=== PATIENT | female | born 1970 | race Two or more races ===

== ENCOUNTER 2024-05-28 17:42 | Emergency (ER) | payer MEDICAID, OTHER ==
[~2024-05-28] VITALS: Ht 157.5 cm; Wt 109.5 kg
--- NOTE | 2024-05-28 19:19 | DVH ---
Procedure: CT CT AB PEL WO CON-NO ORAL OR IV 05/28/2024 06:56 PM Indication: abd pain Comparison Study: None available at time of dictation. Technique: Axial images were obtained and reformatted in coronal and sagittal planes. All CT scans at this medical facility are performed using dose modulation techniques as appropriate t o a performed exam including the following: Automated exposure control was utilized; adjustment of th e MA and/or KV according to patient size; and use of iterative reconstruction technique. CT Dose: CTDI volume is 26.4 mGy. Dose-length product is 1425.45 mGy*cm FINDINGS: Lower Chest: Unremarkable. Hepatobiliary: Unremarkable. Spleen: Unremarkable. Pancreas: Unremarkable. Adrenal Glands: Unremarkable. tract: The kidneys are normal in size bilaterally without hydronephrosis or nephrolithiasis. The urinary bladder is unremarkable. GI tract: The stomach is grossly normal in appearance. No evidence of small bowel obstruction. The la rge bowel is unremarkable. The appendix is not visualized. No inflammatory change is noted in the ri ght lower quadrant. Lymphatics: No mesenteric, retroperitoneal or periportal lymphadenopathy. Vasculature: The abdominal aorta is normal in in caliber. Pelvic Organs: Anteverted uterus. A large, 18 x 16 x 13.4 cm septated cystic mass is seen extending f rom right side of the pelvis to the right upper quadrant displaying bowel to the track vehicle repairer of the ab domen. Small amount of free fluid is seen between the uterine fundus and the cystic lesion. Multiple left ovarian cysts versus a septated cyst with cumulative measurement of 10 x 6 cm. Bones/soft tissues: No acute abnormality. Other: None. IMPRESSION: 1. Large, 18 x 16 cm septated cystic mass occupying right side of the pelvis and right hemiabdomen pr obably an adnexal cyst. Cystic ovarian neoplasm can not be ruled out. Correlation with ultrasound is recommended. 2. Multilocular left ovarian cyst measuring 10 x 6 cm.
[2024-05-28 19:33] LABS: Basophils # (auto) 0.1 10 ^3/uL (0-0.2); Basophils % (auto) 0.8 % (0.0-2.0); Eosinophils # (auto) 0.1 10 ^3/uL (0-0.8); Eosinophils % (auto) 1.7 % (0.0-7.0); Hematocrit 42.2 % (36.0-46.0); Hemoglobin 13.9 g/dL (12.2-16.2); Lymphocytes # (auto) 2.2 10 ^3/uL (0.4-5.4); Lymphocytes % (auto) 33.5 % (10.0-50.0); Mean Corpuscular Hemoglobin 28.4 pg (28.0-32.0); Mean Corpuscular Hgb Conc. 32.9 g/dL (32.0-36.0); Mean Corpuscular Volume 86.4 fL (80.0-100.0); Monocytes # (auto) 0.3 10 ^3/uL (0-1.3); Monocytes % (auto) 4.8 % (0.0-12.0); Neutrophils # (auto) 3.9 10 ^3/uL (1.6-8.6); Neutrophils % (auto) 59.2 % (37.0-80.0); Nucleated Red Blood Cells % 0.1 %; Platelet Count (auto) 304 10^3/uL (140-450); Red Blood Cells 4.88 10^6/uL (4.0-5.20); Red Cell Distribution Width 13.8 % (11.8-14.3); White Blood Cell 6.5 10^3/uL (4.4-10.8)
[2024-05-28 19:38] LABS: Alanine Aminotransferase 18 U/L (7-40); Albumin 4.5 g/dL (3.2-4.8); Anion Gap 8 (5-15); BUN/Creatinine Ratio 19.5 (10.0-20.0); Blood Urea Nitrogen 16 mg/dL (9-23); Calcium 10.2 mg/dL (8.7-10.4); Carbon Dioxide 28 mmol/L (20-31); Chloride 106 mmol/L (98-107); Potassium 4.1 mmol/L (3.5-5.1); Sodium 142 mmol/L (136-145); Total Protein 6.8 g/dL (5.7-8.2)
[2024-05-28 19:52] LABS: Alkaline Phosphatase 119 U/L (46-116); Aspartate Aminotransferase 13 U/L (13-40); Bilirubin, Total 0.2 mg/dL (0.2-1.0); Glucose 124 mg/dL (74-106)
[2024-05-28 20:07] LABS: Lipase 38 U/L (12-53)
--- NOTE | 2024-05-28 20:12 | ED.PDOC ---
GI ASSESSMENT HPI Comments 54y F who presents to the ED for chief complaint of abdominal pain. Pt had the following course of events in the ED; -pt has been having RLQ abdominal pain since 04/11/24 getting progressively worse. -pt states the pain is intermittent, but states the pain today became unbearable so pt came to the ED for evaluation -pt in the ED, states the pain is achy, non-radiating, with no associated exacerbating or relieving factors - pt states she has bleeding when wiping while using the restroom a few month back - pt saw OB recently and had normal pap smear done PMH: hypertension PSH: c-sections, L breast cyst removed medications: unknown social history: denies tobacco use, denies ETOH use, denies drug use allergies: denies STANLEY HPI: Poor Historian. 54-year-old female presents to emergency department for evaluation of right lower quadrant abdominal pain that is intermittent initial nonradiating. No alleviating or precipitating factors. This onset of pain was on April 24 of last year. Pain has been getting worse. Patient has an OB Gyne doctor. Patient most recent Pap smear was proximally a year ago that was normal. Denies any other acute symptoms. Denies any vaginal bleeding. Past Medcial History: Hypertension Past Surgical History: REVIEW OF SYSTEMS: CONSTITUTIONAL: Denies acute: fever, diaphoresis, chills, generalized weakness. HEAD: Denies acute: headache, photophobia Eyes: Denies acute: Double vision, vision loss, eye pain, eye discharge. EARS: Denies acute: tinnitus, hearing loss, ear discharge, ear pain, THROAT: Denies acute: sore throat, swelling, difficulty swallowing , pain with swallowing, change in voice. NECK: Denies acute: neck pain, neck swelling, stiff neck. HEART: Denies acute : chest pain, palpitations, LUNGS: Denies acute: SOB, wheezing, cough, hemoptysis ABDOMEN: Denies acute: Nausea, Vomiting, diarrhea, melena , hematemesis, hematochezia SKIN: Denies acute: rash, redness, lesions, itchiness. EXTREMITIES: Denies acute: calf pain, numbness, tingling, weakness, denies pain in extremity. Denies acute: Low back pain. Neuro: Denies acute: focal neurological deficit, motor or sensory focal neurological deficit, tremors, seizure like activity, confusion, dizziness, change in mental status, loss of bowel or bladder function, cauda equina like symptoms. : Denies acute: dysuria, hematuria, flank pain, increase in urinary frequency. PSYCH: Denies acute: hallucination, suicidal ideation, homicidal ideation. FEMALE: Denies acute: abnormal vaginal bleeding, foul odor, unusual discharge. PHYSICAL EXAM: General: no acute distress, awake and alert. Head: normocephalic, atraumatic. Neck: supple, trachea is midline, no swelling. Throat: Normal phonation. Eyes:, no erythema, no purulent discharge, no proptosis, no icterus. Heart: regular rate, regular rhythm, no significant murmur appreciated. Lungs: no apparent respiratory distress, Able to speak in full sentences. No wheezing, no rhonchi, no crackles. No stridors Clear to auscultation bilaterally. Abdomen: Right lower quadrant tender to palpation, non distended, soft, no guarding, no rebound, + bowel sounds. Obese Neuro: Awake, Alert, oriented to name, self, situation, follows commands GCS=15. Speech is normal. Skin: no petechia, no purpura, no cyanosis, non-pale, not jaundice. Lower extremities: --no - Pitting edema no deformity, no focal swelling, no calf TTP. Makes eye contact. moves all four extremities. Face: no apparent facial droop. Ambulating in the ED independently. Chief Complaint: Abdominal Pain Time Seen by MD: 18:11 Reviewed Notes: Medications, Allergies Information Source: Patient Mode of Arrival: Ambulatory Brought in by: self Past Medical History PAST MEDICAL HISTORY: HTN Was a procedure done? Was a procedure done?: No GI differential Dx Differential Diagnosis: Appendicitis, Cholecystitis, Diverticular disease, Gastritis/PUD, Gastroenteritis, GI hemorrhage, Pancreatitis, Food Poisoning, Kidney Stone, Other X-Ray, Labs, Meds, VS Vital Signs Date Time Temp Pulse Resp B/P (MAP) Pulse Ox O2 Delivery O2 Flow Rate FiO2 05/28/24 18:11 99.2 96 14 166/78 (107) 99 Lab Test 05/28/24 19:37 05/28/24 18:43 Range/Units Troponin I High Sensitivity 18 18 </=34 ng/L White Blood Count 6.5 4.4-10.8 10^3/uL Red Blood Count 4.88 4.0-5.20 10^6/uL Hemoglobin 13.9 12.2-16.2 g/dL Hematocrit 42.2 36.0-46.0 % Mean Corpuscular Volume 86.4 80.0-100.0 fL Mean Corpuscular Hemoglobin 28.4 28.0-32.0 pg Mean Corpuscular Hemoglobin Concent 32.9 32.0-36.0 g/dL Red Cell Distribution Width 13.8 11.8-14.3 % Platelet Count 304 140-450 10^3/uL Mean Platelet Volume 9.7 6.9-10.8 fL Neutrophils (%) (Auto) 59.2 37.0-80.0 % Lymphocytes (%) (Auto) 33.5 10.0-50.0 % Monocytes (%) (Auto) 4.8 0.0-12.0 % Eosinophils (%) (Auto) 1.7 0.0-7.0 % Basophils (%) (Auto) 0.8 0.0-2.0 % Neutrophils # (Auto) 3.9 1.6-8.6 10 ^3/uL Lymphocytes # (Auto) 2.2 0.4-5.4 10 ^3/uL Monocytes # (Auto) 0.3 0-1.3 10 ^3/uL Eosinophils # (Auto) 0.1 0-0.8 10 ^3/uL Basophils # (Auto) 0.1 0-0.2 10 ^3/uL Nucleated Red Blood Cells 0.1 % Sodium Level 142 136-145 mmol/L Potassium Level 4.1 3.5-5.1 mmol/L Chloride Level 106 98-107 mmol/L Carbon Dioxide Level 28 20-31 mmol/L Anion Gap 8 5-15 Blood Urea Nitrogen 16 9-23 mg/dL Creatinine 0.82 0.550-1.02 mg/dL Glomerular Filtration Rate Calc 86 >90 mL/min BUN/Creatinine Ratio 19.5 10.0-20.0 Serum Glucose 124 H 74-106 mg/dL Lactic Acid Level 1.4 0.4-2.0 mmol/L Calcium Level 10.2 8.7-10.4 mg/dL Total Bilirubin 0.2 0.2-1.0 mg/dL Aspartate Amino Transferase (AST) 13 13-40 U/L Alanine Aminotransferase (ALT) 18 7-40 U/L Alkaline Phosphatase 119 H 46-116 U/L Total Protein 6.8 5.7-8.2 g/dL Albumin 4.5 3.2-4.8 g/dL Lipase 38 12-53 U/L [address] [address] Ph: [phone] DIAGNOSTIC IMAGING Diagnostic Imaging Report : [id number] Signed PATIENT: NIMO STANLEY ACCT: [id number] UNIT: [id number] : 1970 LOC: ER ROOM / BED: / AGE / SEX: 54 / F ADM STATUS: REG ER SERVICE 183 ORDERING PHYSICIAN: YOLANDA KRAUSE DO PROCEDURE(s): ABPL - CT AB PEL WO CON-NO ORAL OR IV REASON: abd pain ORDER NUMBER(s): [id number], ACCESSION NUMBER(s): [id number] Procedure: CT CT AB PEL WO CON-NO ORAL OR IV 05/28/2024 06:56 PM Indication: abd pain Comparison Study: None available at time of dictation. Technique: Axial images were obtained and reformatted in coronal and sagittal planes. All CT scans at this medical facility are performed using dose modulation techniques as appropriate to a performed exam including the following: Automated exposure control was utilized; adjustment of the MA and/or KV according to patient size; and use of iterative reconstruction technique. CT Dose: CTDI volume is 26.4 mGy. Dose-length product is 1425.45 mGy*cm FINDINGS: Lower Chest: Unremarkable. Hepatobiliary: Unremarkable. Spleen: Unremarkable. Pancreas: Unremarkable. Adrenal Glands: Unremarkable. tract: The kidneys are normal in size bilaterally without hydronephrosis or nephrolithiasis. The urinary bladder is unremarkable. GI tract: The stomach is grossly normal in appearance. No evidence of small bowel obstruction. The large bowel is unremarkable. The appendix is not visualized. No inflammatory change is noted in the right lower quadrant. Lymphatics: No mesenteric, retroperitoneal or periportal lymphadenopathy. Vasculature: The abdominal aorta is normal in in caliber. Pelvic Organs: Anteverted uterus. A large, 18 x 16 x 13.4 cm septated cystic mass is seen extending from right side of the pelvis to the right upper quadrant displaying bowel to the pulverizer of the abdomen. Small amount of free fluid is seen between the uterine fundus and the cystic lesion. Multiple left ovarian cysts versus a septated cyst with cumulative measurement of 10 x 6 cm. Bones/soft tissues: No acute abnormality. Other: None. IMPRESSION: 1. Large, 18 x 16 cm septated cystic mass occupying right side of the pelvis and right hemiabdomen probably an adnexal cyst. Cystic ovarian neoplasm can not be ruled out. Correlation with ultrasound is recommended. 2. Multilocular left ovarian cyst measuring 10 x 6 cm. ATED BY: MARIAN PEACOCK MD DICTATED DATE/TIME: 05/28/241915 SIGNED BY: MARIAN PEACOCK MD SIGNED DATE/TIME: 05/28/241915 CC: Patient Education/Counseling: Diagnosis, Treatment Family Education/Counseling: No Family Present I personally scribed for MARGARITA HAND MD ([email or web address]) on 05/28/24 at 20:12. Electronically submitted by Oseas Scott ([email or web address]). I personally scribed for MARGARITA HAND MD ([email or web address]) on 05/28/24 at 20:56. Electronically submitted by Oseas Scott ([email or web address]). MARGARITA HAND MD May 28, 2024 20:12 YOLANDA KRAUSE DO May 28, 2024 20:13
--- NOTE | 2024-05-28 20:52 | DVH ---
EXAM: US PELVIC CLINICAL HISTORY: pelvic mass TECHNIQUE: Transabdominal ultrasound of the pelvis with color Doppler flow as clinically indicated. COMPARISON: None Findings: Same-day quantitative beta-hCG is not available. Uterus measures 10.7 x 7.5 x 6.1 cm in size with relatively heterogeneous echotexture and normal cont ours. Multiple hypoechoic lesion near the uterine fundus, measuring up to 4.3 x 3.2 x 3.4 cm. Endometrium not well visualized. Cervix appears grossly unremarkable. Bilateral ovaries not visualized. 16.1 x 12.5 x 17.8 cm right adnexal anechoic mass. 8.8 x 8.0 x 7.0 cm hypoechoic left adnexal mass with internal septations. Mild free fluid in the cul-de-sac. Impression: 1. Myomatous uterus. Endometrium not well visualized. 2. Bilateral ovaries not visualized. 3. Large right adnexal cystic lesion and large left complex adnexal mass. Recommend contrast enhanced MRI for further evaluation. 4. Mild free fluid in the cul-de-sac, nonspecific.
--- NOTE | 2024-05-28 20:59 | ED.PDOC ---
GI ASSESSMENT HPI Comments PMH: hypertension PSH: c-sections, L breast cyst removed medications: unknown social history: denies tobacco use, denies ETOH use, denies drug use allergies: denies HPI: Poor Historian. 54-year-old female presents to emergency department for evaluation of right lower quadrant abdominal pain that is intermittent initial nonradiating. No alleviating or precipitating factors. This onset of pain was on April 24 of last year. Pain has been getting worse. Patient has an OB Gyne doctor. Patient most recent Pap smear was proximally a year ago that was normal. Denies any other acute symptoms. Denies any vaginal bleeding. Past Medcial History: Hypertension Past Surgical History: REVIEW OF SYSTEMS: CONSTITUTIONAL: Denies acute: fever, diaphoresis, chills, generalized weakness. HEAD: Denies acute: headache, photophobia Eyes: Denies acute: Double vision, vision loss, eye pain, eye discharge. EARS: Denies acute: tinnitus, hearing loss, ear discharge, ear pain, THROAT: Denies acute: sore throat, swelling, difficulty swallowing , pain with swallow ing, change in voice. NECK: Denies acute: neck pain, neck swelling, stiff neck. HEART: Denies acute : chest pain, palpitations, LUNGS: Denies acute: SOB, wheezing, cough, hemoptysis ABDOMEN: Denies acute: Nausea, Vomiting, diarrhea, melena , hematemesis, hematochezia SKIN: Denies acute: rash, redness, lesions, itchiness. EXTREMITIES: Denies acute: calf pain, numbness, tingling, weakness, denies pain in extremity. Denies acute: Low back pain. Neuro: Denies acute: focal neurological deficit, motor or sensory focal neurological deficit, tremors, seizure like activity, confusion, dizziness, change in mental status, loss of bowel or bladder function, cauda equina like symptoms. : Denies acute: dysuria, hematuria, flank pain, increase in urinary frequency. PSYCH: Denies acute: hallucination, suicidal ideation, homicidal ideation. FEMALE: Denies acute: abnormal vaginal bleeding, foul odor, unusual discharge. PHYSICAL EXAM: General: no acute distress, awake and alert. Head: normocephalic, atraumatic. Neck: supple, trachea is midline, no swelling. Throat: Normal phonation. Eyes:, no erythema, no purulent discharge, no proptosis, no icterus. Heart: regular rate, regular rhythm, no significant murmur appreciated. Lungs: no apparent respiratory distress, Able to speak in full sentences. No wheezing, no rhonchi, no crackles. No stridors Clear to auscultation bilaterally. Abdomen: Right lower quadrant tender to palpation, non distended, soft, no guarding, no rebound, + bowel sounds. Obese Neuro: Awake, Alert, oriented to name, self, situation, follows commands GCS=15. Speech is normal. Skin: no petechia, no purpura, no cyanosis, non-pale, not jaundice. Lower extremities: --no - Pitting edema no deformity, no focal swelling, no calf TTP. Makes eye contact. moves all four extremities. Face: no apparent facial droop. Ambulating in the ED independently. Chief Complaint: Abdominal Pain Time Seen by MD: 19:18 Reviewed Notes: Medications, Allergies Allergies: Coded Allergies: No Known Drug Allergy (Verified Allergy, Unknown, 05/28/24) Information Source: Patient Mode of Arrival: Ambulatory Past Medical History PAST MEDICAL HISTORY: HTN Was a procedure done? Was a procedure done?: No GI differential Dx Differential Diagnosis: Appendicitis, Cholecystitis, Diverticular disease, Gastritis/PUD, Gastroenteritis, GI hemorrhage, Pancreatitis, Food Poisoning, Kidney Stone, Other Other Differential Diagnosis Appendicitis, Cholecystitis, Diverticular disease, Gastritis/PUD, Gastroenteritis, GI hemorrhage, Pancreatitis, Food Poisoning, Kidney Stone, Other X-Ray, Labs, Meds, VS Vital Signs Date Time Temp Pulse Resp B/P (MAP) Pulse Ox O2 Delivery O2 Flow Rate FiO2 05/28/24 23:43 97.8 81 16 138/76 (96) 95 97.8 05/28/24 18:11 99.2 96 14 166/78 (107) 99 Lab Test 05/28/24 21:49 05/28/24 19:37 05/28/24 18:43 Range/Units Urine Color Light-yellow Yellow Urine Clarity Clear Clear Urine pH 6.0 5.0-9.0 Urine Specific [place] 1.022 1.001-1.035 Urine Protein Negative Negative Urine Ketones Negative Negative Urine Blood Negative Negative /uL Urine Nitrite Negative Negative Urine Bilirubin Negative Negative Urine Urobilinogen Normal Negative mg/dL Urine Leukocyte Esterase Negative Negative /uL Urine RBC <1 0 - 4 /hpf Urine Microscopic WBC < 1 0-5 /HPF Urine Squamous Epithelial Cells Few <5 /hpf Urine Bacteria Few H None Seen /hpf Urine Glucose Normal Normal mg/dL Troponin I High Sensitivity 18 18 </=34 ng/L White Blood Count 6.5 4.4-10.8 10^3/uL Red Blood Count 4.88 4.0-5.20 10^6/uL Hemoglobin 13.9 12.2-16.2 g/dL Hematocrit 42.2 36.0-46.0 % Mean Corpuscular Volume 86.4 80.0-100.0 fL Mean Corpuscular Hemoglobin 28.4 28.0-32.0 pg Mean Corpuscular Hemoglobin Concent 32.9 32.0-36.0 g/dL Red Cell Distribution Width 13.8 11.8-14.3 % Platelet Count 304 140-450 10^3/uL Mean Platelet Volume 9.7 6.9-10.8 fL Neutrophils (%) (Auto) 59.2 37.0-80.0 % Lymphocytes (%) (Auto) 33.5 10.0-50.0 % Monocytes (%) (Auto) 4.8 0.0-12.0 % Eosinophils (%) (Auto) 1.7 0.0-7.0 % Basophils (%) (Auto) 0.8 0.0-2.0 % Neutrophils # (Auto) 3.9 1.6-8.6 10 ^3/uL Lymphocytes # (Auto) 2.2 0.4-5.4 10 ^3/uL Monocytes # (Auto) 0.3 0-1.3 10 ^3/uL Eosinophils # (Auto) 0.1 0-0.8 10 ^3/uL Basophils # (Auto) 0.1 0-0.2 10 ^3/uL Nucleated Red Blood Cells 0.1 % Sodium Level 142 136-145 mmol/L Potassium Level 4.1 3.5-5.1 mmol/L Chloride Level 106 98-107 mmol/L Carbon Dioxide Level 28 20-31 mmol/L Anion Gap 8 5-15 Blood Urea Nitrogen 16 9-23 mg/dL Creatinine 0.82 0.550-1.02 mg/dL Glomerular Filtration Rate Calc 86 >90 mL/min BUN/Creatinine Ratio 19.5 10.0-20.0 Serum Glucose 124 H 74-106 mg/dL Lactic Acid Level 1.4 0.4-2.0 mmol/L Calcium Level 10.2 8.7-10.4 mg/dL Total Bilirubin 0.2 0.2-1.0 mg/dL Aspartate Amino Transferase (AST) 13 13-40 U/L Alanine Aminotransferase (ALT) 18 7-40 U/L Alkaline Phosphatase 119 H 46-116 U/L Total Protein 6.8 5.7-8.2 g/dL Albumin 4.5 3.2-4.8 g/dL Lipase 38 12-53 U/L [facility] [id number] [place] [address] Ph: [phone] DIAGNOSTIC IMAGING Diagnostic Imaging Report : [id number] Signed PATIENT: NIMO STANLEY ACCT: [id number] UNIT: [id number] : 1970 LOC: ER ROOM / BED: / AGE / SEX: 54 / F ADM STATUS: REG ER SERVICE 31 ORDERING PHYSICIAN: YOLANDA KRAUSE DO PROCEDURE(s): ABPL - CT AB PEL WO CON-NO ORAL OR IV REASON: abd pain ORDER NUMBER(s): [id number], ACCESSION NUMBER(s): [id number] Procedure: CT CT AB PEL WO CON-NO ORAL OR IV 05/28/2024 06:56 PM Indication: abd pain Comparison Study: None available at time of dictation. Technique: Axial images were obtained and reformatted in coronal and sagittal planes. All CT scans at this medical facility are performed using dose modulation techniques as appropriate to a performed exam including the following: Automated exposure control was utilized; adjustment of the MA and/or KV according to patient size; and use of iterative reconstruction technique. CT Dose: CTDI volume is 26.4 mGy. Dose-length product is 1425.45 mGy*cm FINDINGS: Lower Chest: Unremarkable. Hepatobiliary: Unremarkable. Spleen: Unremarkable. Pancreas: Unremarkable. Adrenal Glands: Unremarkable. tract: The kidneys are normal in size bilaterally without hydronephrosis or nephrolithiasis. The urinary bladder is unremarkable. GI tract: The stomach is grossly normal in appearance. No evidence of small bowel obstruction. The large bowel is unremarkable. The appendix is not visualized. No inflammatory change is noted in the right lower quadrant. Lymphatics: No mesenteric, retroperitoneal or periportal lymphadenopathy. Vasculature: The abdominal aorta is normal in in caliber. Pelvic Organs: Anteverted uterus. A large, 18 x 16 x 13.4 cm septated cystic mass is seen extending from right side of the pelvis to the right upper quadrant displaying bowel to the high school combination teacher of the abdomen. Small amount of free fluid is seen between the uterine fundus and the cystic lesion. Multiple left ovarian cy sts versus a septated cyst with cumulative measurement of 10 x 6 cm. Bones/soft tissues: No acute abnormality. Other: None. IMPRESSION: 1. Large, 18 x 16 cm septated cystic mass occupying right side of the pelvis and right hemiabdomen probably an adnexal cyst. Cystic ovarian neoplasm can not be ruled out. Correlation with ultrasound is recommended. 2. Multilocular left ovarian cyst measuring 10 x 6 cm. ATED BY: MARIAN PEACOCK MD DICTATED DATE/TIME: 05/28/241915 SIGNED BY: MARIAN PEACOCK MD SIGNED DATE/TIME: 05/28/241915 CC: [place] [id number] Ph: [phone] DIAGNOSTIC IMAGING Diagnostic Imaging Report : [id number] Signed PATIENT: NIMO STANLEY ACCT: [id number] UNIT: [id number] : 1970 LOC: ER ROOM / BED: / AGE / SEX: 54 / F ADM STATUS: REG ER SERVICE 51 ORDERING PHYSICIAN: YOLANDA KRAUSE DO PROCEDURE(s): PELUS - PELVIC REASON: pelvic mass ORDER NUMBER(s): [id number], ACCESSION NUMBER(s): [id number] EXAM: US PELVIC CLINICAL HISTORY: pelvic mass TECHNIQUE: Transabdominal ultrasound of the pelvis with color Doppler flow as clinically indicated. COMPARISON: None Findings: Same-day quantitative beta-hCG is not available. Uterus measures 10.7 x 7.5 x 6.1 cm in size with relatively heterogeneous echotexture and normal contours. Multiple hypoechoic lesion near the uterine fundus, measuring up to 4.3 x 3.2 x 3.4 cm. Endometrium not well visualized. Cervix appears grossly unremarkable. Bilateral ovaries not visualized. 16.1 x 12.5 x 17.8 cm right adnexal anechoic mass. 8.8 x 8.0 x 7.0 cm hypoechoic left adnexal mass with internal septations. Mild free fluid in the cul-de-sac. Impression: 1. Myomatous uterus. Endometrium not well visualized. 2. Bilateral ovaries not visualized. 3. Large right adnexal cystic lesion and large left complex adnexal mass. Recommend contrast enhanced MRI for further evaluation. 4. Mild free fluid in the cul-de-sac, nonspecific. ATED BY: SYDNI CHAPA DO DICTATED DATE/TIME: 05/28/242049 SIGNED BY: SYDNI CHAPA DO SIGNED DATE/TIME: 05/28/242049 CC: Time of 1ST Reevaluation: 00:00 Reevaluation 1ST: Unchanged Patient Education/Counseling: Diagnosis, Treatment Family Education/Counseling: No Family Present Comments Patient presented with the above HPI.--abdominal pain----workup was initiated. patient was found with the above mentioned diagnosis. the following medications were ordered: please refer to order lists of meds and tests obtained by myself Dr. Krause. Patient ED course and VS have been stabilized. Patient has been reassessed in the ED and remained in a stable condition. Pertinent incidental findings were discussed with the patient and/or family. Patient/family voices understanding and is agreeable with plan. Patient has been observed in the ED adequate length of time to insure improvement/stability. Escalation of care considered: Consideration of escalation to observation or admission Patient was DISCHARGED home in a stable condition. All the reports of any imaging studies that were ordered by myself were reviewed by myself. Departure 1 Departure Time of Disposition: 21:05 Impression: Primary Impression: Pelvic mass Disposition: HOME / SELF CARE / HOMELESS Condition: Stable Additional Instructions: Additional discharge instructions: You MUST follow-up with your primary care/family doctor in 1 to 2 days. If you are unable to see your primary care/family doctor, please return to our emergency room for re-assessment and re-evaluation in 1 to 2 days. Return to the emergency room here in our facility or to the nearest ER [facility] if your symptoms change or worsen. CONSULTATIONS: you MUST Follow-up for consultation as soon as possible with: Dr.-OB Tejada doctor in 1-2 days. Please call for appointment. You must follow up because your findings are concerning for possible cancer/neoplasm. This must be further investigated. We do not have a cancer specialist in our facility You MUST call the consultants office yourself to make an appointment. You may need to arrange that through your insurance and/or your primary/family doctor. If you are unable to see the work and family life consultant in 1 to 2 days, you must return to our emergency room (or any other ER of your choice) for re-assessment and re-evaluation. Adequate fluid hydration. Below is a copy of your radiological report for follow up: [place] [id number] Ph: [phone] DIAGNOSTIC IMAGING Diagnostic Imaging Report : [id number] Signed PATIENT: NIMO STANLEY ACCT: [id number] UNIT: [id number] : 1970 LOC: ER ROOM / BED: / AGE / SEX: 54 / F ADM STATUS: REG ER SERVICE 1832 ORDERING PHYSICIAN: YOLANDA KRAUSE DO PROCEDURE(s): ABPL - CT AB PEL WO CON-NO ORAL OR IV REASON: abd pain ORDER NUMBER(s): [id number], ACCESSION NUMBER(s): [id number] Procedure: CT CT AB PEL WO CON-NO ORAL OR IV 05/28/2024 06:56 PM Indication: abd pain Comparison Study: None available at time of dictation. Technique: Axial images were obtained and reformatted in coronal and sagittal planes. All CT scans at this medical facility are performed using dose modulation techniques as appropriate to a performed exam including the following: Automated exposure control was utilized; adjustment of the MA and/or KV according to patient size; and use of iterative reconstruction technique. CT Dose: CTDI volume is 26.4 mGy. Dose-length product is 1425.45 mGy*cm FINDINGS: Lower Chest: Unremarkable. Hepatobiliary: Unremarkable. Spleen: Unremarkable. Pancreas: Unremarkable. Adrenal Glands: Unremarkable. tract: The kidneys are normal in size bilaterally without hydronephrosis or nephrolithiasis. The urinary bladder is unremarkable. GI tract: The stomach is grossly normal in appearance. No evidence of small bowel obstruction. The large bowel is unremarkable. The appendix is not visualized. No inflammatory change is noted in the right lower quadrant. Lymphatics: No mesenteric, retroperitoneal or periportal lymphadenopathy. Vasculature: The abdominal aorta is normal in in caliber. Pelvic Organs: Anteverted uterus. A large, 18 x 16 x 13.4 cm septated cystic mass is seen extending from right side of the pelvis to the right upper quadrant displaying bowel to the high school combination teacher of the abdomen. Small amount of free fluid is seen between the uterine fundus and the cystic lesion. Multiple left ovarian cysts versus a septated cyst with cumulative measurement of 10 x 6 cm. Bones/soft tissues: No acute abnormality. Other: None. IMPRESSION: 1. Large, 18 x 16 cm septated cystic mass occupying right side of the pelvis and right hemiabdomen probably an adnexal cyst. Cystic ovarian neoplasm can not be ruled out. Correlation with ultrasound is recommended. 2. Multilocular left ovarian cyst measuring 10 x 6 cm. ATED BY: MARIAN PEACOCK MD DICTATED DATE/TIME: 05/28/241915 SIGNED BY: MARIAN PEACOCK MD SIGNED DATE/TIME: 05/28/241915 CC: [place] [id number] Ph: [phone] DIAGNOSTIC IMAGING Diagnostic Imaging Report : [id number] Signed PATIENT: NIMO STANLEY ACCT: [id number] UNIT: [id number] : 1970 LOC: ER ROOM / BED: / AGE / SEX: 54 / F ADM STATUS: REG ER SERVICE 51 ORDERING PHYSICIAN: YOLANDA KRAUSE DO PROCEDURE(s): PELUS - PELVIC REASON: pelvic mass ORDER NUMBER(s): [id number], ACCESSION NUMBER(s): [id number] EXAM: US PELVIC CLINICAL HISTORY: pelvic mass TECHNIQUE: Transabdominal ultrasound of the pelvis with color Doppler flow as clinically indicated. COMPARISON: None Findings: Same-day quantitative beta-hCG is not available. Uterus measures 10.7 x 7.5 x 6.1 cm in size with relatively heterogeneous echotexture and normal contours. Multiple hypoechoic lesion near the uterine fundus, measuring up to 4.3 x 3.2 x 3.4 cm. Endometrium not well visualized. Cervix appears grossly unremarkable. Bilateral ovaries not visualized. 16.1 x 12.5 x 17.8 cm right adnexal anechoic mass. 8.8 x 8.0 x 7.0 cm hypoechoic left adnexal mass with internal septations. Mild free fluid in the cul-de-sac. Impression: 1. Myomatous uterus. Endometrium not well visualized. 2. Bilateral ovaries not visualized. 3. Large right adnexal cystic lesion and large left complex adnexal mass. Recommend contrast enhanced MRI for further evaluation. 4. Mild free fluid in the cul-de-sac, nonspecific. Discharged With: Self Critical Care Note Critical Care Time?: No I personally scribed for YOLANDA KRAUSE DO ([email or web address]) on 05/28/24 at 20:59. Electronically submitted by Oseas Scott ([email or web address] I personally scribed for YOLANDA KRAUSE DO ([email or web address]) on 05/28/24 at 21:00. Electronically submitted by Oseas Scott ([facility]). I personally scribed for YOLANDA KRAUSE DO ([email or web address]) on 05/28/24 at 21:08. Electronically submitted by Oseas Scott ([facility] YOLANDA KRAUSE DO May 28, 2024 20:59
[2024-05-28 22:19] LABS: Urine Bacteria FEW /hpf (None Seen); Urine Blood Negative /uL (Negative); Urine Clarity Clear (Clear); Urine Color Light-Yellow (Yellow); Urine Protein, UAD Negative (Negative); Urine Specific Gravity 1.022 (1.001-1.035); Urine Squamous Epithelial Cell FEW /hpf (<5); Urine Urobilinogen Normal (Negative); Urine WBC < 1 /HPF (0-5)
[2024-05-28 23:43] VITALS: BP 138/76; PULSE 81; RESP 16; TEMP 97.8; O2SAT 95
[2024-05-28] MEDS: HYDROcodone-ACET 5/325MG TAB PO ONE (23:50)
== END 2024-05-28 23:56 | disposition home or self-care (01) ==
LOC: ER 17:52
DX: R19.00 Intra-abdominal and pelvic swelling, mass and lump, unspecified site (principal); I10 Essential (primary) hypertension
CPT/HCPCS: 36415; 74176; 76856; 80053; 81001; 83605; 83690; 84484; 85025